=== PATIENT | male | born 1985 | race Caucasian/White ===

== ENCOUNTER 2020-10-29 07:34 | Emergency (ER) | payer MEDICAID ==
[~2020-10-29] VITALS: Ht 183.5 cm; Wt 111.4 kg
[2020-10-29] MEDS ORDERED: LORazepam 1 MG tablet PO ONE (15:00)
[2020-10-29] MEDS ORDERED: GABA300C PO (15:01)
[2020-10-29 15:15] VITALS: BP 150/100
== END 2020-10-29 15:19 | disposition home or self-care (01) ==
LOC: ER 07:35
DX: F10.10 Alcohol abuse, uncomplicated (principal); Z72.89 Other problems related to lifestyle; Z79.899 Other long term (current) drug therapy; Y90.9 Presence of alcohol in blood, level not specified
CPT/HCPCS: 99283